=== PATIENT | male | born 1975 | race Caucasian/White ===

== ENCOUNTER 2016-12-27 00:52 | Emergency (ER) | payer BC ==
[~2016-12-27] VITALS: Ht 172.7 cm; Wt 141.0 kg
[2016-12-27 00:55] VITALS: Ht 172.7 cm; Wt 141.0 kg
[2016-12-27] MEDS ORDERED: SOD CHLORIDE 0.9% 1,000 ML IV STA (01:08)
[2016-12-27] MEDS ORDERED: morphine 4 MG/ML VIAL IV STA (01:08)
[2016-12-27] MEDS ORDERED: ONDANSETRON 4 MG INJ IV STA (01:08)
[2016-12-27 01:29] LABS: URINE BLOOD (Dip) POC 2+ (NEGATIVE)
[2016-12-27 02:01] LABS: BASOPHILS % 0.4 % (0.0-2.0); EOSINOPHILS # 0.1 10^3/ul (0.0-0.5); HEMATOCRIT 44.5 % (42.0-52.0); HEMOGLOBIN 14.9 g/dl (14.0-18.0); LYMPHOCYTES # 0.9 10^3/ul (0.8-2.9); MEAN CORPUSCULAR HEMOGLOBIN 27.8 pg (29.0-33.0); MEAN CORPUSCULAR HGB CONC 33.5 g/dl (32.0-37.0); MONOCYTE # 0.4 10^3/ul (0.3-0.9); MONOCYTES % 4.9 % (0.0-11.0); NEUTROPHILS % 82.2 % (39.0-77.0); PLATELET COUNT 227 10^3/UL (140-415); RED BLOOD COUNT 5.36 10^6/ul (4.70-6.10); RED CELL DISTRIBUTION WIDTH 12.8 % (11.5-14.5); WHITE BLOOD COUNT 7.8 10^3/ul (4.8-10.8)
[2016-12-27 02:06] LABS: ADD UMIC YES; UR ASCORBIC ACID NEGATIVE (NEGATIVE); UR BILIRUBIN (Dip) NEGATIVE (NEGATIVE); UR BLOOD (Dip) 2+ mg/dL (NEGATIVE); UR CLARITY CLEAR (CLEAR); UR COLOR COLORLESS (YELLOW); UR GLUCOSE (Dip) NEGATIVE (NEGATIVE); UR KETONES (Dip) NEGATIVE (NEGATIVE); UR LEUKOCYTE ESTERASE (Dip) NEGATIVE Leu/ul (NEGATIVE); UR NITRITE (Dip) NEGATIVE (NEGATIVE); UR RBC 2 /HPF (0-5); UR SPECIFIC GRAVITY (Dip) 1.003 (1.003-1.030); UR TOTAL PROTEIN (Dip) NEGATIVE (NEGATIVE); UR UROBILINOGEN (Dip) NEGATIVE (NEGATIVE)
[2016-12-27 02:21] LABS: ALBUMIN 4.4 g/dl (3.3-4.9); ALBUMIN/GLOBULIN RATIO 1.41; BILIRUBIN,INDIRECT 1.9 mg/dl (0-1.1); BILIRUBIN,TOTAL 1.9 mg/dl (0.2-1.3); CALCIUM 9.1 mg/dl (8.4-10.2); CREATININE 0.78 mg/dl (0.61-1.24); POTASSIUM 3.9 mmol/L (3.5-5.1); TOTAL PROTEIN 7.5 g/dl (6.1-8.1)
--- NOTE | 2016-12-27 02:21 | RADRPT ---
PROCEDURE: CT ABDOMEN/PELVIS WITHOUT CONTRAST CLINICAL INDICATION: 41-year-old male with abdominal pain. TECHNIQUE: The study was performed utilizing a [employer] VCT 64-slice CT scanner. Direct axia l sections were obtained through the abdomen and pelvis without the use of intravenous contrast mate rial. Sagittal and coronal reformations were obtained. One or more of the following dose reduction t echniques were utilized: automated exposure control, adjustment of the mA and/or kV according to pat ient's size or use of iterative reconstruction technique. The images were reviewed on a PACS workst at[employer]id[employer]. CTD/vol = 23.7 mGy; Total Exam DLP = 1004 of 44.4 mGy-cm. COMPARISON: None. FINDINGS: The lung bases are unremarkable. There is no evidence for significant pleural effusion. The liver has a normal size and contour. There is a small cyst identified within the posterior segment of the right lobe of the liver on axial image 3-61 measuring 9 x 9 mm. There is a additional cystic focus within the medial segment of the left lobe of the liver on axial image 3-31 measuring approximately 9 x 7 mm. No intrahepatic nor extrahepatic biliary ductal dilatation is seen. The gallbladder demo nstrates no wall thickening nor pericholecystic fluid. No biliary stones are evident. The pancreas i s without areas of abnormal attenuation. The spleen is identified and has a normal size without abn ormal density. The adrenal glands are unremarkable. There is a right right mid renal nonobstructing calculus measuring approximately 11 x 10 x 7 mm. There are smaller punctate nonobstructing right up per and lower pole renal calyceal calculi. There is a punctate nonobstructing left mid renal irena calculus. There is mild left-sided hydroureteronephrosis with an obstructing punctate left ureteral vesicle junction calculus. There is mild retained stool identified within the ascending colon witho ut obstruction. The appendix is visualized and is without abnormal thickening or surrounding inflam matory reaction. The prostate is mildly prominent with small central calcification within it. There is no significant free fluid. The aortoiliac vessels are without aneurysmal dilatation. The osseous structures are intact. IMPRESSION: 1. Mild left-sided hydroureteronephrosis with an obstructing punctate left ureteral vesicle junctio n calculus. 2. Bilateral nonobstructing renal calculi. 3. Mild retained stool within the proximal colon without obstruction. 4. No CT evidence for appendicitis. .Damaso Mayen MD, Date Time Electronically viewed and signed by .Damaso Mayen MD, on 12/27/2016 02:20 .Stevan/
[2016-12-27] MEDS ORDERED: LEVE500S8 PO (02:26)
[2016-12-27] MEDS ORDERED: CLON-379 PO (02:29)
[2016-12-27] MEDS ORDERED: ATOR20TA38 PO (02:32)
[2016-12-27] MEDS ORDERED: LEVO150T67 PO (02:32)
[2016-12-27] MEDS ORDERED: ESCI10TA48 PO (02:32)
[2016-12-27] MEDS ORDERED: LOSA50TA6 PO (02:32)
[2016-12-27 02:54] VITALS: BP 139/100; PULSE 86; RESP 18
--- NOTE | 2016-12-27 03:05 | ERD ---
ER Documentation Chief Complaint Date/Time DATE: 12/27/16 TIME: 03:00 Chief Complaint both flank pain since 2 hours ago HPI 41-year-old male bilateral flank pain since 2 hours ago. Pain is colicky nature. No nausea vomiting fevers or chills. No other current complaints. Pain is mild to moderate in intensity ROS All systems reviewed and are negative except as per history of present illness. Medications Home Meds Reported Medications Atorvastatin Calcium* (Atorvastatin Calcium*) 20 Mg Tablet, 20 MG PO QHS, #30 TAB 12/27/16 Losartan Potassium* (Losartan Potassium*) 50 Mg Tablet, 50 MG PO DAILY, TAB 12/27/16 Escitalopram Oxalate* (Escitalopram Oxalate*) 10 Mg Tablet, 10 MG PO DAILY, #30 TAB 12/27/16 Levothyroxine Sodium* (Levothyroxine Sodium*) 150 Mcg Tablet, 150 MCG PO BEFORE BREAKFAST, #30 TAB 12/27/16 Clonidine Hcl* (Clonidine Hcl*) 0.1 Mg Tab, 0.1 MG PO DAILY, TAB 12/27/16 Levetiracetam* (Levetiracetam*) 500 Mg/5 Ml Solution, 500 MG PO DIRECTED, ML TAKE 1 TAB BY MOUTH TWICE A DAY 7x DAYS THEN, 2 TABS TWICE A DAY 7x DAYS THEN, 3 TABS TWICE A DAY 7X DAYS. 12/27/16 Allergies Allergies: Coded Allergies: No Known Allergy (Unverified , 12/27/16) PMhx/Soc Medical and Surgical Hx: pt denies Surgical Hx Hx Cardiac Disorders: Yes (htn, high cholesterol) Hx Miscellaneous Medical Probl: Yes (multiple kidneystones in past ) Hx Alcohol Use: No Hx Substance Use: No Hx Tobacco Use: No Smoking Status: Never smoker Physical Exam Vitals Vital Signs Date Time Temp Pulse Resp B/P Pulse Ox O2 Delivery O2 Flow Rate FiO2 12/27/16 02:54 86 18 139/100 97 Room Air 12/27/16 00:55 98.3 93 20 159/101 98 Physical Exam Const: [] Head: Atraumatic Eyes: Normal Conjunctiva ENT: Normal External Ears, Nose and Mouth. Neck: Full range of motion..~ No meningismus. Resp: Clear to auscultation bilaterally Cardio: Regular rate and rhythm, no murmurs Abd: Soft, non tender, non distended. Normal bowel sounds Skin: No petechiae or rashes Back: No midline or flank tenderness Ext: No cyanosis, or edema Neur: Awake and alert Psych: Normal Mood and Affect Result Diagram: 12/27/16 0120 12/27/16 0120 Results 24 hrs Laboratory Tests Test 12/27/16 01:20 12/27/16 01:34 White Blood Count 7.810^3/ul Red Blood Count 5.3610^6/ul Hemoglobin 14.9g/dl Hematocrit 44.5% Mean Corpuscular Volume 83.0fl Mean Corpuscular Hemoglobin 27.8pg Mean Corpuscular Hemoglobin Concent 33.5g/dl Red Cell Distribution Width 12.8% Platelet Count 06771^3/UL Mean Platelet Volume 9.0fl Neutrophils % 82.2% Lymphocytes % 11.0% Monocytes % 4.9% Eosinophils % 1.0% Basophils % 0.4% Nucleated Red Blood Cells % 0.0/100WBC Neutrophils # (Manual) 6.410^3/ul Lymphocytes # 0.910^3/ul Monocytes # 0.410^3/ul Eosinophils # 0.110^3/ul Basophils # 0.010^3/ul Nucleated Red Blood Cells # 0.010^3/ul Urine Color COLORLESS Urine Clarity CLEAR Urine pH 7.0 Urine Specific Sulphur 1.003 Urine Ketones NEGATIVEmg/dL Urine Nitrite NEGATIVEmg/dL Urine Bilirubin NEGATIVEmg/dL Urine Urobilinogen NEGATIVEmg/dL Urine Leukocyte Esterase NEGATIVELeu/ul Urine Microscopic RBC 2/HPF Urine Microscopic WBC 0/HPF Urine Hemoglobin 2+mg/dL Urine Glucose NEGATIVEmg/dL Urine Total Protein NEGATIVEmg/dl Sodium Level 137mmol/L Potassium Level 3.9mmol/L Chloride Level 95mmol/L Carbon Dioxide Level 25mmol/L Anion Gap 21 Blood Urea Nitrogen 12mg/dl Creatinine 0.78mg/dl Glucose Level 114mg/dl Calcium Level 9.1mg/dl Total Bilirubin 1.9mg/dl Direct Bilirubin 0.00mg/dl Indirect Bilirubin 1.9mg/dl Aspartate Amino Transf (AST/SGOT) 24IU/L Alanine Aminotransferase (ALT/SGPT) 43IU/L Alkaline Phosphatase 71IU/L Total Protein 7.5g/dl Albumin 4.4g/dl Globulin 3.10g/dl Albumin/Globulin Ratio 1.41 Lipase 266U/L Bedside Urine pH (LAB) 6.0 Bedside Urine Protein (LAB) Negative Bedside Urine Glucose (UA) Negative Bedside Urine Ketones (LAB) Negative Bedside Urine Blood 2+ Bedside Urine Nitrite (LAB) Negative Bedside Urine Leukocyte Esterase (L Negative Current Medications Medications (Trade) Dose Ordered Sig/Mary Lou Route PRN Reason Start Time Stop Time Status Last Admin Dose Admin Sodium Chloride (NS) 1,000 ml @ 1,000 mls/hr Q1H STAT IV 12/27/16 01:08 12/27/16 02:07 DC 12/27/16 01:25 Morphine Sulfate (morphine) 4 mg ONCE STAT IV 12/27/16 01:08 12/27/16 01:09 DC 12/27/16 01:25 Ondansetron HCl (Zofran Inj) 4 mg ONCE STAT IV 12/27/16 01:08 12/27/16 01:09 DC 12/27/16 01:25 Procedures/MDM Medical decision-makin-year-old male with what looks to be renal colic. At this point clinically stable. Patient be discharged home and told to follow with primary care physician. Told to follow-up in 8 hours for serial abdominal exams. Departure Diagnosis: Primary Impression: Flank pain Condition: Stable FLORENCIA LAMBERT Dec 27, 2016 03:05
[2016-12-27] MEDS ORDERED: ONDA4TAB14 PO (03:08)
[2016-12-27] MEDS ORDERED: HYDR-902 PO (03:08)
[2016-12-27] MEDS ORDERED: TAMS-14 PO (03:08)
== END 2016-12-27 03:15 | disposition home or self-care (01) ==
LOC: E/R 00:52
DX: R10.9 Unspecified abdominal pain (principal); I10 Essential (primary) hypertension
CPT/HCPCS: 36415; 74176; 80053; 81001; 83690; 85025; 96374; 96375; 99285; J2270; J2405; J7030; 81003